=== PATIENT | female | born 1960 | race Caucasian/White ===

== ENCOUNTER 2019-12-27 10:52 | Emergency (ER) | payer OTHER, BC ==
[~2019-12-27] VITALS: Ht 162.6 cm; Wt 57.2 kg
[2019-12-27 10:55] VITALS: Ht 162.6 cm; Wt 57.2 kg
[2019-12-27 11:29] VITALS: BP 120/64
== END 2019-12-27 12:03 | disposition home or self-care (01) ==
LOC: ED 10:52
DX: K59.00 Constipation, unspecified (principal); Z88.0 Allergy status to penicillin